=== PATIENT | male | born 1995 | race Caucasian/White ===

== ENCOUNTER 2016-05-27 10:28 | Emergency (ER) | payer OTHER ==
[~2016-05-27] VITALS: Ht 170.2 cm; Wt 88.5 kg
[2016-05-27 10:39] VITALS: Ht 170.2 cm; Wt 88.5 kg
[2016-05-27] MEDS ORDERED: SOD CHLORIDE 0.9% 1,000 ML IV STA (11:43)
[2016-05-27] MEDS ORDERED: FAMOTIDINE 20 MG INJ IV STA (11:43)
[2016-05-27] MEDS ORDERED: LIDOCAINE/MYLANTA 40 ML BTL PO STA (11:43)
[2016-05-27] MEDS ORDERED: BELLADONNA/PHENOBARBITAL TAB PO STA (11:43)
[2016-05-27 12:16] LABS: BASOPHILS % 0.3 % (0.0-2.0); EOSINOPHILS # 0.1 10^3/ul (0.0-0.5); EOSINOPHILS % 0.9 % (0.0-7.0); HEMATOCRIT 46.1 % (42.0-52.0); HEMOGLOBIN 15.9 g/dl (14.0-18.0); LYMPHOCYTES # 2.2 10^3/ul (0.8-2.9); LYMPHOCYTES % 29.5 % (15.0-51.0); MEAN CORPUSCULAR HEMOGLOBIN 30.9 pg (29.0-33.0); MEAN CORPUSCULAR HGB CONC 34.4 g/dl (32.0-37.0); MEAN CORPUSCULAR VOLUME 89.8 fl (82.0-101.0); MEAN PLATELET VOLUME 8.9 fl (7.4-10.4); MONOCYTES % 13.5 % (0.0-11.0); NEUTROPHIL # 4.2 10^3/ul (1.6-7.5); NEUTROPHILS % 55.8 % (39.0-77.0); PLATELET COUNT 242 10^3/UL (140-440); RED BLOOD COUNT 5.13 10^6/ul (4.70-6.10); RED CELL DISTRIBUTION WIDTH 12.8 % (11.5-14.5); UNCORRECTED WBC 7.5 10^3/ul (4.8-10.8); WHITE BLOOD COUNT 7.5 10^3/ul (4.8-10.8)
[2016-05-27 12:17] LABS: ADD UMIC NO; URINE BILIRUBIN (Dip) NEGATIVE (NEGATIVE); URINE BLOOD (Dip) NEGATIVE (NEGATIVE); URINE COLOR LT. YELLOW (YELLOW); URINE GLUCOSE (Dip) NEGATIVE (NEGATIVE); URINE KETONES (Dip) NEGATIVE (NEGATIVE); URINE LEUKOCYTE ESTERASE (Dip) NEGATIVE (NEGATIVE); URINE NITRITE (Dip) NEGATIVE (NEGATIVE); URINE TOTAL PROTEIN (Dip) NEGATIVE (NEGATIVE); URINE UROBILINOGEN (Dip) 0.2 E.U./dL (0.1-1.0)
[2016-05-27 12:17] LABS: CONDITION 1
[2016-05-27 12:32] LABS: ALBUMIN 3.9 g/dl (3.3-4.9); POTASSIUM 4.4 mmol/L (3.5-5.1)
--- NOTE | 2016-05-27 12:32 | RADRPT ---
PROCEDURE: US Abdomen. CLINICAL INDICATION: abdominal pain TECHNIQUE: Multiple real-time images were acquired of the patient's right upper quadrant abdomen a nd retroperitoneum utilizing a high resolution transducer. COMPARISON: None FINDINGS: The liver demonstrates normal echogenicity. The liver is normal in size and no focal solid lesions are seen. The liver measures 16.7 cm in length. The portal vein is patent with normal direction of f low. No intrahepatic biliary dilatation is seen. No gallstones are identified within the gallbladder. There is no pericholecystic fluid or gallbladd er wall thickening. The common bile duct measures 5 mm in maximal dimension. The visualized portions of the pancreas are unremarkable. The tail of the pancreas is not seen. No free fluid is identified. The right kidney is normal in size, and demonstrate normal echogenicity and cortical thickness. The right kidney measures 10.3 cm in long dimension. There is no evidence of hydronephrosis. There are no kidney stones. RPTAT: AA IMPRESSION: Unremarkable right upper quadrant abdominal ultrasound. .Ezra Fuller MD, Date Time Electronically viewed and signed by .Ezra Fuller MD, MD on 05/27/2016 12:32 .S/
[2016-05-27 12:34] LABS: CREATININE 1.01 mg/dl (0.61-1.24)
[2016-05-27 12:35] LABS: ALBUMIN/GLOBULIN RATIO 1.05; BILIRUBIN,INDIRECT 0.3 mg/dl (0-1.1); BILIRUBIN,TOTAL 0.3 mg/dl (0.2-1.3); CALCIUM 9.1 mg/dl (8.4-10.2); TOTAL PROTEIN 7.6 g/dl (6.1-8.1)
[2016-05-27] MEDS ORDERED: ONDA4TAB8 PO (12:57)
[2016-05-27] MEDS ORDERED: CIPR500T4 PO (12:57)
[2016-05-27] MEDS ORDERED: FAMO-18 PO (12:58)
--- NOTE | 2016-05-27 13:15 | ERD ---
ER Documentation Chief Complaint Date/Time DATE: 05/27/16 TIME: 13:08 Chief Complaint EPIGASTRIC PAIN 11/04,BLOOD IN THE STOOL HPI This is a 20-year-old male presents to the ER with epigastric pain that is described as burning in quality it radiates to his left lower quadrant. Patient states that he's had this for the last 3 days and he's also had bloody diarrhea. He admits to nausea however denies vomiting. He does not have any fevers or chills. Patient has not traveled anywhere and he has not eaten anything different. She has not tried anything for the pain or his diarrhea. He does not feel dizzy. He denies any chest pain or shortness of breath. He denies weakness. ROS 12 point review of systems was done, all negative except per HPI. Medications Home Meds Active Scripts Famotidine* (Pepcid*) 20 Mg Tablet, 20 MG PO BID for 4 Days, TAB Prov:RAJIV FRANK C 05/27/16 Ondansetron Hcl* (Zofran*) 4 Mg Tablet, 4 MG PO Q6H for NAUSEA AND/OR VOMITING, #30 TAB Prov:RAJIV FRANK C 05/27/16 Ciprofloxacin Hcl* (Ciprofloxacin Hcl*) 500 Mg Tablet, 500 MG PO BID for 3 Days , TAB Prov:RAJIV FRANK C 05/27/16 Reported Medications [None] No Conflict Check 04/05/11 Allergies Allergies: Uncoded Allergies: NONE (Allergy, 04/05/11) PMhx/Soc History of Surgery: No Anesthesia Reaction: No Hx Neurological Disorder: No Hx Respiratory Disorders: No Hx Cardiac Disorders: No Hx Psychiatric Problems: No Hx Miscellaneous Medical Probl: No Hx Alcohol Use: No Hx Substance Use: No Hx Tobacco Use: No Physical Exam Vitals Vital Signs Date Time Temp Pulse Resp B/P Pulse Ox O2 Delivery O2 Flow Rate FiO2 05/27/16 10:39 98.6 78 18 136/79 98 Physical Exam GENERAL: The patient is well developed and appropriate for usual state of health , in no apparent distress. HEENT: Atraumatic. CHEST: Clear to auscultation bilaterally. There are no rales, wheezes or rhonchi. HEART: Regular rate and rhythm. No murmurs, clicks, rubs or gallops. ABDOMEN: Soft, non distended. ttp in the epigastric area and in the LLQ. Good bowel sounds. No rebound or guarding. No gross peritonitis. No gross organomegaly or masses. No Cuevas sign or McBurney point tenderness. BACK: No midline or flank tenderness. EXTREMITIES: Full range of motion. Grossly neurovascularly intact. NEURO: Alert and oriented. SKIN: The skin is warm and dry. Result Diagram: 05/27/16 1200 05/27/16 1200 Results 24 hrs Laboratory Tests Test 05/27/16 11:35 05/27/16 12:00 Urine Bilirubin NEGATIVE Urine Clarity CLEAR Urine Color LT. YELLOW Urine Glucose NEGATIVE% Urine Hemoglobin NEGATIVE Urine Ketones NEGATIVE Urine Leukocyte Esterase NEGATIVE Urine Nitrite NEGATIVE Urine Specific [place] 1.020 Urine Total Protein NEGATIVE Urine Urobilinogen 0.2 E.U./dL Urine pH 7.0 Alanine Aminotransferase (ALT/SGPT) 50IU/L Albumin 3.9g/dl Albumin/Globulin Ratio 1.05 Alkaline Phosphatase 52IU/L Anion Gap 16 Aspartate Amino Transf (AST/SGOT) 25IU/L Basophils # 0.010^3/ul Basophils % 0.3% Blood Urea Nitrogen 8mg/dl Calcium Level 9.1mg/dl Carbon Dioxide Level 29mmol/L Chloride Level 102mmol/L Creatinine 1.01mg/dl Direct Bilirubin 0.00mg/dl Eosinophils # 0.110^3/ul Eosinophils % 0.9% Globulin 3.70g/dl Glucose Level 86mg/dl Hematocrit 46.1% Hemoglobin 15.9g/dl Indirect Bilirubin 0.3mg/dl Lipase 87U/L Lymphocytes # 2.210^3/ul Lymphocytes % 29.5% Mean Corpuscular Hemoglobin 30.9pg Mean Corpuscular Hemoglobin Concent 34.4g/dl Mean Corpuscular Volume 89.8fl Mean Platelet Volume 8.9fl Monocytes # 1.010^3/ul Monocytes % 13.5% Neutrophils # 4.210^3/ul Neutrophils % 55.8% Nucleated Red Blood Cells # 0.010^3/ul Nucleated Red Blood Cells % 0.0/100WBC Platelet Count 31355^3/UL Potassium Level 4.4mmol/L Red Blood Count 5.1310^6/ul Red Cell Distribution Width 12.8% Sodium Level 143mmol/L Total Bilirubin 0.3mg/dl Total Protein 7.6g/dl White Blood Count 7.510^3/ul Current Medications Medications (Trade) Dose Ordered Sig/Josesito Route PRN Reason Start Time Stop Time Status Last Admin Dose Admin Sodium Chloride (NS) 1,000 ml @ 1,000 mls/hr Q1H STAT IV 05/27/16 11:43 05/27/16 12:42 DC 05/27/16 12:10 Famotidine (Pepcid Iv) 20 mg ONCE STAT IV 05/27/16 11:43 05/27/16 11:45 DC 05/27/16 12:05 Miscellaneous Medication (Gi Cocktail (2)) 40 ml ONCE STAT PO 05/27/16 11:43 05/27/16 11:45 DC 05/27/16 12:05 Belladonna/ Phenobarbital () 2 tab ONCE STAT PO 05/27/16 11:43 05/27/16 11:45 DC 05/27/16 12:05 Procedures/MDM This is a 20-year-old male presents to the ER with epigastric pain radiating to his left lower quadrant and bloody diarrhea. Differential diagnosis includes but is not limited to viral diarrhea, bacterial diarrhea, infectious colitis, Crohn's, IBS, food poisoning, diverticulitis. Patient is afebrile and well- appearing. At this time do not believe patient is having acute abdomen as physical examination is benign. Suspicion for diverticulitis is low. Patient does not have an elevation in white blood cells and he is not dehydrated, there are no electrolyte abnormalities, there is also no evidence of anemia. Patient will be sent home with [facility] for any potential bacterial etiology of diarrhea. He was advised to stay well-hydrated. Patient needs to follow-up with his primary care doctor within 1-2 days return to ER sooner symptoms worsen. My medical decision making was discussed with the patient mother they both understand and agree with plan. Departure Diagnosis: Primary Impression: Diarrhea Condition: Stable Patient Instructions: Self-Care for Vomiting and Diarrhea Additional Instructions: Call your primary care doctor TOMORROW for an appointment during the next 1-2 days.See the doctor sooner or return here if your condition worsens before your appointment time. RAJIV FRANK May 27, 2016 13:15
[2016-05-27 13:18] VITALS: BP 129/78; PULSE 72; RESP 18; TEMP 98.7
== END 2016-05-27 13:21 | disposition home or self-care (01) ==
LOC: FTE 10:28
DX: R19.7 Diarrhea, unspecified (principal); R11.0 Nausea
CPT/HCPCS: 76705; 80053; 81003; 83690; 85025; J7030; Z7610; 36415; 96374

== ENCOUNTER 2016-06-11 16:13 | Emergency (ER) | payer OTHER ==
[~2016-06-11] VITALS: Ht 175.3 cm; Wt 89.0 kg
[~2016-06-11 16:13] MED LIST: CIPR500T4 PO; FAMO-18 PO; ONDA4TAB8 PO
[2016-06-11 16:24] VITALS: Ht 175.3 cm; Wt 89.0 kg
[2016-06-11] MEDS ORDERED: LIDOCAINE/MYLANTA 40 ML BTL PO STA (16:58)
[2016-06-11] MEDS ORDERED: BELLADONNA/PHENOBARBITAL TAB PO STA (16:58)
[2016-06-11] MEDS ORDERED: OMEP20CA16 PO (17:00)
[2016-06-11] MEDS ORDERED: MAG355OR14 PO (17:00)
[2016-06-11] MEDS ORDERED: PANTOPRAZOLE (EC) 40 MG TAB PO ONE (17:00)
--- NOTE | 2016-06-11 17:08 | ERD ---
ER Documentation Chief Complaint Date/Time DATE: 06/11/16 TIME: 17:02 Chief Complaint AP X 3 WEEKS WITH RT ARM & NECK RASH HPI This is a 20-year-old man referred here by his clinic for diffuse nonpruritic rash 3 days shortly after using ciprofloxacin as well as epigastric abdominal pain and burning in lower quadrant abdominal pain and cramping. He was seen and evaluated here 2 weeks ago, ultrasound of the abdomen was unremarkable, and patient was diagnosed with possible bacterial versus viral colitis and diarrhea as well as gastroesophageal reflux disease and gastritis. He states he has been using the medications as prescribed including ciprofloxacin with relief of his lower quadrant abdominal pain and diarrhea. He states his epigastric burning is also improved although continues, which is why his primary care physician referred him here today. It seems PMD was also concerned about the rash that developed 3 days ago. Patient has had no vomiting, no recent diarrhea , no chest pain or shortness of breath, no melena or blood per rectum, no fevers or chills, no recent travel, no weight loss. ROS All systems reviewed and are negative except as per history of present illness. Medications Home Meds Active Scripts Mag Hydrox/Al Hydrox/Simeth (Maalox Advanced Suspension) 355 Ml Oral.susp, 2 TSP PO TID, #24 OZ Prov:BARBARA WADE MD 06/11/16 Omeprazole* (Omeprazole*) 20 Mg Capsule.dr, 20 MG PO DAILY, #30 Prov:BARBARA WADE MD 06/11/16 Famotidine* (Pepcid*) 20 Mg Tablet, 20 MG PO BID for 4 Days, TAB Prov:RAJIV FRANK 05/27/16 Ondansetron Hcl* (Zofran*) 4 Mg Tablet, 4 MG PO Q6H for NAUSEA AND/OR VOMITING, #30 TAB Prov:RAJIV FRANK 05/27/16 Ciprofloxacin Hcl* (Ciprofloxacin Hcl*) 500 Mg Tablet, 500 MG PO BID for 3 Days , TAB Prov:RAJIV FRANK 05/27/16 Reported Medications [None] No Conflict Check 04/05/11 Allergies Allergies: Uncoded Allergies: NONE (Allergy, 04/05/11) PMhx/Soc History of Surgery: No Anesthesia Reaction: No Hx Neurological Disorder: No Hx Respiratory Disorders: No Hx Cardiac Disorders: No Hx Psychiatric Problems: No Hx Miscellaneous Medical Probl: No Hx Alcohol Use: No Hx Substance Use: No Hx Tobacco Use: No FmHx Patient's mother who is at the bedside states at age 20 she was also diagnosed with gastritis and gastroesophageal reflux disease and uses medications until today. Family History: No diabetes Physical Exam Vitals Vital Signs Date Time Temp Pulse Resp B/P Pulse Ox O2 Delivery O2 Flow Rate FiO2 06/11/16 16:24 98.1 90 20 148/81 98 Physical Exam GENERAL: Well-developed, well-nourished, well-hydrated, in no apparent distress , looks nontoxic in appearance HEENT: Moist mucous membranes, pink conjunctiva, no cervical spine tenderness or step-off deformities, no goiter, no jaundice or icterus, extraocular movements intact without pain. No submandibular induration, and no pharyngeal erythema NEURO: Alert and oriented 3, cranial nerves II through XII intact bilaterally, pupils equal round reactive to light, no focal deficits or facial asymmetry, sensation intact distally Strength 5/5 in upper and lower extremities bilaterally CARDIAC: Regular rate and rhythm, no murmurs rubs or gallops LUNGS: Clear bilaterally no wheezing crackles or stridor ABDOMEN: Soft nontender, no guarding, no rigidity, no rebound, no psoas sign no obturator sign. Normoactive bowel sounds SKIN: Warm and dry to touch, mild nonpruritic maculopapular urticarial lesions to the upper extremities and upper back, no target lesions, and skin is without ulcers EXTREMITIES: No clubbing cyanosis or edema, calves are bilaterally symmetrical, no Homans sign, no popliteal cord sign. Distal pulses equal and bilateral PSYCH: Normal affect without agitation or irritability Results 24 hrs Current Medications Medications (Trade) Dose Ordered Sig/Josesito Route PRN Reason Start Time Stop Time Status Last Admin Dose Admin Miscellaneous Medication (Gi Cocktail (2)) 40 ml ONCE STAT PO 06/11/16 16:58 06/11/16 16:59 DC Belladonna/ Phenobarbital () 2 tab ONCE STAT PO 06/11/16 16:58 06/11/16 16:59 DC Pantoprazole (Protonix Tab) 40 mg ONCE ONCE PO 06/11/16 17:00 06/11/16 17:01 Procedures/MDM I administered pantoprazole 40 mg p.o. and Maalox suspension 50 cc p.o. Considerations that I discussed with the patient and his mother included viral diarrhea, bacterial diarrhea, infectious colitis, Crohn's, IBS, food poisoning, diverticulitis, hiatal hernia. Patient is afebrile and well-appearing, and his symptoms have either improved or completely resolved. It seems he developed an allergic dermatitis secondary to ciprofloxacin use although that has been discontinued and the rash should resolve spontaneously over the next few days to 1 week. Patient's recent labs and imaging studies were unremarkable, he remains afebrile, and abdominal exam remains benign. Patient feels much better at this time, and vital signs are normal, symptoms have improved. I did give strict instructions to return to the ED if symptoms continue or worsen, patient will otherwise follow-up with primary care physician. Patient understood instructions and agreed to plan. Departure Diagnosis: Primary Impression: GERD with esophagitis Additional Impression: Allergic dermatitis Condition: Good Patient Instructions: Allergic Reaction, Drug, Gerd (Adult) BARBARA WADE MD Jun 11, 2016 17:08
== END 2016-06-11 17:24 | disposition home or self-care (01) ==
LOC: FTE 16:13
DX: K21.0 Gastro-esophageal reflux disease with esophagitis (principal); L23.9 Allergic contact dermatitis, unspecified cause
CPT/HCPCS: Z7502; Z7610; 99283

== ENCOUNTER 2016-06-22 14:08 | Emergency (ER) | payer OTHER ==
[~2016-06-22] VITALS: Ht 175.3 cm; Wt 88.6 kg
[~2016-06-22 14:08] MED LIST changes: +MAG355OR14 PO; +OMEP20CA16 PO
[2016-06-22 14:11] VITALS: Ht 175.3 cm; Wt 88.6 kg
[2016-06-22] MEDS ORDERED: SOD CHLORIDE 0.9% 1,000 ML IV ONE (17:00)
[2016-06-22 17:14] LABS: ADD SCAN DIFF NO
[2016-06-22 17:17] LABS: BASOPHILS % 0.4 % (0.0-2.0); EOSINOPHILS # 0.1 10^3/ul (0.0-0.5); EOSINOPHILS % 1.1 % (0.0-7.0); HEMATOCRIT 50.6 % (42.0-52.0); HEMOGLOBIN 16.9 g/dl (14.0-18.0); LYMPHOCYTES # 3.2 10^3/ul (0.8-2.9); LYMPHOCYTES % 29.9 % (15.0-51.0); MEAN CORPUSCULAR HEMOGLOBIN 29.5 pg (29.0-33.0); MEAN CORPUSCULAR HGB CONC 33.4 g/dl (32.0-37.0); MEAN CORPUSCULAR VOLUME 88.5 fl (82.0-101.0); MEAN PLATELET VOLUME 10.1 fl (7.4-10.4); MONOCYTE # 1.2 10^3/ul (0.3-0.9); MONOCYTES % 10.9 % (0.0-11.0); NEUTROPHIL # 6.2 10^3/ul (1.6-7.5); NEUTROPHILS % 57.2 % (39.0-77.0); PLATELET COUNT 316 10^3/UL (140-415); RED BLOOD COUNT 5.72 10^6/ul (4.70-6.10); RED CELL DISTRIBUTION WIDTH 12.3 % (11.5-14.5); WHITE BLOOD COUNT 10.8 10^3/ul (4.8-10.8)
[2016-06-22 17:19] LABS: ADD UMIC NO; URINE BILIRUBIN (Dip) NEGATIVE (NEGATIVE); URINE BLOOD (Dip) NEGATIVE (NEGATIVE); URINE COLOR LT. YELLOW (YELLOW); URINE GLUCOSE (Dip) NEGATIVE (NEGATIVE); URINE KETONES (Dip) NEGATIVE (NEGATIVE); URINE LEUKOCYTE ESTERASE (Dip) NEGATIVE (NEGATIVE); URINE NITRITE (Dip) NEGATIVE (NEGATIVE); URINE TOTAL PROTEIN (Dip) NEGATIVE (NEGATIVE); URINE UROBILINOGEN (Dip) 0.2 E.U./dL (0.1-1.0)
[2016-06-22 17:38] LABS: ALBUMIN 4.5 g/dl (3.3-4.9)
[2016-06-22 17:39] LABS: POTASSIUM 5.1 mmol/L (3.5-5.1)
[2016-06-22 17:41] LABS: ALBUMIN/GLOBULIN RATIO 1.32; BILIRUBIN,INDIRECT 0.2 mg/dl (0-1.1); BILIRUBIN,TOTAL 0.2 mg/dl (0.2-1.3); CREATININE 1.01 mg/dl (0.61-1.24); TOTAL PROTEIN 7.9 g/dl (6.1-8.1)
[2016-06-22 17:42] LABS: CALCIUM 9.8 mg/dl (8.4-10.2)
--- NOTE | 2016-06-22 18:44 | ERD ---
ER Documentation Chief Complaint Date/Time DATE: 06/22/16 TIME: 18:40 Chief Complaint rash on body and diarrhea for past week HPI This is a 20-year-old male presents to the ER with epigastric pain that radiates to his left lower quadrant and diarrhea for the past week. Patient has been seen here in the past with similar complaints. Patient was given Cipro and developed a rash and was given medication for his epigastric pain. Patient has discontinued Cipro that he continue rash that is itchy. Patient does admit to some nausea and intermittent vomiting that is nonbilious nonbloody. He denies any fevers or chills. He denies any recent travel. ROS 12 point review of systems was done, all negative except per HPI. Medications Home Meds Active Scripts Mag Hydrox/Al Hydrox/Simeth (Maalox Advanced Suspension) 355 Ml Oral.susp, 2 TSP PO TID, #24 OZ Prov:BARBARA WADE MD 06/11/16 Omeprazole* (Omeprazole*) 20 Mg Capsule.dr, 20 MG PO DAILY, #30 Prov:BARBARA WADE MD 06/11/16 Famotidine* (Pepcid*) 20 Mg Tablet, 20 MG PO BID for 4 Days, TAB Prov:RAJIV FRANK 05/27/16 Ondansetron Hcl* (Zofran*) 4 Mg Tablet, 4 MG PO Q6H for NAUSEA AND/OR VOMITING, #30 TAB Prov:RAJIV FRANK 05/27/16 Ciprofloxacin Hcl* (Ciprofloxacin Hcl*) 500 Mg Tablet, 500 MG PO BID for 3 Days , TAB Prov:RAJIV FRANK 05/27/16 Reported Medications [None] No Conflict Check 04/05/11 Allergies Allergies: Coded Allergies: No Known Allergy (Unverified , 06/22/16) PMhx/Soc History of Surgery: No Anesthesia Reaction: No Hx Neurological Disorder: No Hx Respiratory Disorders: No Hx Cardiac Disorders: No Hx Psychiatric Problems: No Hx Miscellaneous Medical Probl: No Hx Alcohol Use: No Hx Substance Use: No Hx Tobacco Use: No Smoking Status: Never smoker Physical Exam Vitals Vital Signs Date Time Temp Pulse Resp B/P Pulse Ox O2 Delivery O2 Flow Rate FiO2 06/22/16 14:11 98.6 100 18 132/99 99 Physical Exam GENERAL: The patient is well-developed, well-nourished, in no acute distress. NECK: Cervical spine is non tender with no step off. Supple, no nuchal rigidity HEENT: Atraumatic. Pupils equal, round and reactive to light. Extraocular muscles are grossly intact. Conjunctivae pink, no discharge. The oropharynx is clear with no erythema or exudates and the mucosa is moist. No signs of dehydration. RESPIRATORY: Clear to auscultation bilaterally. There are no rales, wheezes or rhonchi. There is no inspiratory stridor or retractions. HEART: Regular rate and rhythm. No murmurs, clicks, rubs or gallops. ABDOMEN: Soft, nontender, nondistended. Active bowel sounds in all 4 quadrants. No rebounding or guarding. Negative McBurney point tenderness. NEUROLOGIC: Alert and oriented. Cranial nerves II through XII are intact. Strength 5/5 and symmetric upper and lower extremities, sensory exam grossly intact, reflexes 2+ and symmetric, cerebellar testing normal. SKIN: There is a rash to the patient's left arm that is dry with areas of lichenification, very small papules. Normal capillary refill. Result Diagram: 06/22/16 1700 06/22/16 1700 Results 24 hrs Laboratory Tests Test 06/22/16 17:00 Alanine Aminotransferase (ALT/SGPT) 42IU/L Albumin 4.5g/dl Albumin/Globulin Ratio 1.32 Alkaline Phosphatase 70IU/L Anion Gap 20 Aspartate Amino Transf (AST/SGOT) 22IU/L Basophils # 0.010^3/ul Basophils % 0.4% Blood Urea Nitrogen 10mg/dl Calcium Level 9.8mg/dl Carbon Dioxide Level 29mmol/L Chloride Level 98mmol/L Creatinine 1.01mg/dl Direct Bilirubin 0.00mg/dl Eosinophils # 0.110^3/ul Eosinophils % 1.1% Globulin 3.40g/dl Glucose Level 91mg/dl Hematocrit 50.6% Hemoglobin 16.9g/dl Indirect Bilirubin 0.2mg/dl Lymphocytes # 3.210^3/ul Lymphocytes % 29.9% Mean Corpuscular Hemoglobin 29.5pg Mean Corpuscular Hemoglobin Concent 33.4g/dl Mean Corpuscular Volume 88.5fl Mean Platelet Volume 10.1fl Monocytes # 1.210^3/ul Monocytes % 10.9% Neutrophils # 6.210^3/ul Neutrophils % 57.2% Nucleated Red Blood Cells # 0.010^3/ul Nucleated Red Blood Cells % 0.0/100WBC Platelet Count 61253^3/UL Potassium Level 5.1mmol/L Red Blood Count 5.7210^6/ul Red Cell Distribution Width 12.3% Sodium Level 142mmol/L Total Bilirubin 0.2mg/dl Total Protein 7.9g/dl Urine Bilirubin NEGATIVE Urine Clarity CLEAR Urine Color LT. YELLOW Urine Glucose NEGATIVE% Urine Hemoglobin NEGATIVE Urine Ketones NEGATIVE Urine Leukocyte Esterase NEGATIVE Urine Nitrite NEGATIVE Urine Specific [place] 1.015 Urine Total Protein NEGATIVE Urine Urobilinogen 0.2 E.U./dL Urine pH 6.0 White Blood Count 10.810^3/ul Current Medications Medications (Trade) Dose Ordered Sig/Josesito Route PRN Reason Start Time Stop Time Status Last Admin Dose Admin Sodium Chloride (NS) 1,000 ml @ 1,000 mls/hr Q1H ONCE IV 06/22/16 17:00 06/22/16 17:59 DC 06/22/16 16:48 Procedures/MDM This is a 20-year-old male who presents to the ER with multiple complaints. Patient has had epigastric pain for over a month now this is likely acid reflux. Patient seems to be having intermittent nausea vomiting diarrhea this is likely viral in etiology. Patient was treated for possible bacterial infection however became allergic to medication. Patient then developed a rash. Rash has been there for the last 2 weeks. At this time patient will be treated with a short course of steroids to treat this possible allergic reaction versus dermatitis. Do not believe the rash is coming from strep throat or mono as they are both negative. He will be given medication for his epigastric pain. At this time I do not believe the patient is having diverticulitis or an intra-abdominal abscess or acute abdomen at this physical examination is benign. Patient's symptoms have been intermittent for the last month. Patient afebrile and well-appearing. He needs to follow-up with his primary care doctor within 1-2 days or return to ER sooner if symptoms worsen. Medical decision making patient with the mother and with the patient. Departure Diagnosis: Primary Impression: Multiple complaints Condition: Stable RAJIV FRANK Jun 22, 2016 18:44
[2016-06-22] MEDS ORDERED: LOPE2CAP PO (18:45)
[2016-06-22] MEDS ORDERED: RANI150T9 PO (18:45)
[2016-06-22] MEDS ORDERED: ONDA-43 PO (18:45)
[2016-06-22] MEDS ORDERED: PRED20TA PO (18:46)
[2016-06-22 19:02] VITALS: BP 134/77; PULSE 79; RESP 16
== END 2016-06-22 19:03 | disposition home or self-care (01) ==
LOC: FTE 14:08
DX: R10.13 Epigastric pain (principal); R21 Rash and other nonspecific skin eruption; R11.2 Nausea with vomiting, unspecified
CPT/HCPCS: 36415; 80053; 81003; 85025; 86308; 87880; J7030; Z7502